=== PATIENT | male | born 1955 | race Caucasian/White ===

== ENCOUNTER 2017-11-03 09:45 | Emergency (ER) | payer OTHER, BC ==
[~2017-11-03] VITALS: Ht 175.3 cm; Wt 104.3 kg
[~2017-11-03 09:45] MED LIST: ADVAIR 500-501 EACH INH; ADVIL200 MG PO; ALBUTEROL2.5 MG/3 M INH; BAYER CHEWABLE81 MG PO; COLESTIPOL HCL1 GM PO; LEXAPRO10 MG PO; MELOXICAM15 MG PO; PREDNISONE20 MG PO; PROAIR HFA8.5 GM INH; SINGULAIR10 MG PO; ZETIA10 MG PO; ZYRTEC10 MG PO
[2017-11-03] MEDS ORDERED: ISOSORBIDE MONO30 MG PO (09:58)
--- NOTE | 2017-11-04 06:55 | EKG ---
[facility] [address] [facility] [place], [place] [address] Signed Sinus bradycardia Otherwise normal ECG No previous ECGs available Confirmed by JENN PALACIOS MD ([id number]) on 11/04/2017 6:54:46 AM Electronically Signed By: JENN PALACIOS MD 11/04/17 0655 PATIENT NAME: JOSE PARIKH Electrocardiogram DATE OF : 55 PHYSICIAN: JENN PALACIOS MD REPORT #: [id number] REPORT IS CONFIDENTIAL AND NOT TO BE RELEASED WITHOUT AUTHORIZATION
== END 2017-11-03 11:08 | disposition home or self-care (01) ==
LOC: ED 09:45
DX: R56.9 Unspecified convulsions (principal); Z88.8 Allergy status to other drugs, medicaments and biological substances; Z79.899 Other long term (current) drug therapy
CPT/HCPCS: 70450; 80053; 84484; 85025; 93005; 93010; 99284

== ENCOUNTER 2019-06-15 06:40 | Day surgery (SDC) | payer OTHER, BC ==
[~2019-06-15] VITALS: Ht 175.3 cm; Wt 111.1 kg
[~2019-06-15 06:40] MED LIST changes: +COZAAR25 MG; +ISOSORBIDE MONO30 MG PO; +ZOLOFT25 MG
[2019-06-15] MEDS ORDERED: PRALUENT P75 MG/1 ML (07:00)
--- NOTE | 2019-06-15 08:03 | NUR ---
06/15/19 0803 Efrem,Alejandra 0754 PT ARRIVED TO PACU ON 3L VIA NC, RESP EVEN AND UNLABORED. PT WAKES EASILY TO VERBAL STIMULI AND IS REORIENTED TO PACU. PT FALLS BACK TO SLEEP AND SMALL AMOUNT OF SNORING NOTED.
--- NOTE | 2019-06-15 14:16 | NUR ---
PT RESTING IN BED, ALERT AND ORIENTED. PT IS HERE FOR HIS FIRST SCOPE. HE SEEMED TO DEAL APPROPRIATELY WITH PREP. GAVE BLESSING, WILL FOLLOW PT HAS NEED
--- NOTE | 2019-06-15 18:16 | OR ---
[facility] [address] [place], [place] [address] Signed DATE OF OPERATION: 06/15/2019 SURGEON: Ro Wilkins MD PREOPERATIVE DIAGNOSIS: Personal history of colonic polyps in 2013. POSTOPERATIVE DIAGNOSES: 1. 5 mm polyp at 95 cm (distal transverse colon). 2. Internal anal skin tag x1. PROCEDURE: Colonoscopy with hot biopsy. ESTIMATED BLOOD LOSS: None. INDICATIONS: Jose is a 63-year-old gentleman, who asked to see me for a followup colonoscopy. He had an adenomatous polyp removed at 38 cm in December 2013. He also has an internal anal skin tag x1. There are no lower GI complaints. No family history of colon cancer or polyps. I met with Jose in the office. We have reviewed colonoscopy together in detail. He understands the nature of the test along with the risks including, but not limited to gas bloating, crampy abdominal pain, bleeding, perforation requiring surgery, and missed diagnosis. He also understands the need for IV conscious sedation. He had expressed understanding and wished to proceed. PROCEDURE NOTE: Jose was taken into our endoscopy suite and placed in the left lateral decubitus position. He was given a total of 5 mg of Versed and 125 mcg of fentanyl. A digital rectal exam was performed and I could feel the internal anal skin tag. Prostate is mildly enlarged and indurated. After this, the adult colonoscope was introduced and advanced quite readily into the cecum itself without difficulty. His prep was good. We could see the appendiceal orifice and the ileocecal valve. The scope was slowly withdrawn. We took several pictures throughout for photodocumentation. Back at 95 cm in the distal transverse colon, we took out a small 5 mm polyp with the help of hot biopsy forceps. There was no diverticulosis. The rectum was unremarkable. Upon retroflexing the scope, we could see the single internal anal skin tag. After this, the gas was suctioned out. Colonoscope removed. Jose tolerated the procedure quite well. Electronically Signed By: RO WILKINS MD 06/15/19 1816 PATIENT NAME: JOSE PARIKH OPERATIVE REPORT DATE OF : 55 REPORT #: [id number] PHYSICIAN: RO WILKINS MD PCP: CHANEL LOZANO REPORT IS CONFIDENTIAL AND NOT TO BE RELEASED WITHOUT AUTHORIZATION [address] [address] Signed RECOMMENDATIONS: I will see Jose back in my office in 7 to 14 days to review his results. He will stay on the 5-year rotation. MD WIN Leija/SONAL /[id number] cc: MD Chanel Leija PA Copies: RO WILKINS MD, LINDA PA ~ Electronically Signed By: RO WILKINS MD 06/15/19 1816 PATIENT NAME: JOSE PARIKH OPERATIVE REPORT DATE OF : 55 REPORT #: [id number] PHYSICIAN: RO WILKINS MD PCP: CHANEL LOZANO REPORT IS CONFIDENTIAL AND NOT TO BE RELEASED WITHOUT AUTHORIZATION
--- NOTE | 2019-06-16 13:40 | PATH ---
[facility] [address] [place], [place] [address] Signed SPECIMEN(S): A COLON POLYP AT 95 CM SPECIMEN SOURCE: A. COLON POLYP AT 95 CM CLINICAL HISTORY: Family history colon ca, history polyp. MICROSCOPIC DESCRIPTION: Histologic sections of all submitted blocks are examined by light microscopy. These findings, together with the gross examination, support the pathologic diagnosis. FINAL PATHOLOGIC DIAGNOSIS: Colon, polyp at 95 cm, polypectomy: - Tubular adenoma. - Negative for high-grade dysplasia or malignancy. NAL:cml:C2NR GROSS DESCRIPTION: The specimen, labeled "RL, 1" and "colon polyp at 95 cm" on the requisition, is received in formalin and consists of two soft marques tissue fragments that measure 0.3 cm each and are submitted in toto in cassette (A1). SS (under the direct supervision of a pathologist) The Gross Description was prepared using a voice recognition system. The report was reviewed for accuracy; however, sound-alike word errors, addition and/or deletions may occur. If there is any question about this report, please contact Client Services. PERFORMING LABORATORY: The technical component was performed by [facility], [address] [place] [id number] (Nailhead Operator: Prema Levin MD; CLIA# [id number]). [facility] [address] [address] (CLIA# [id number]). Diagnostician: Kavya Adkins MD Pathologist Electronically Signed 06/16/2019 PATIENT NAME: JOSE PARIKH PATHOLOGY DATE OF : 55 REPORT #: [id number] PHYSICIAN: JOSE PATHOLOGY PCP: IGNACIO LOZANO REPORT IS CONFIDENTIAL AND NOT TO BE RELEASED WITHOUT AUTHORIZATION [address] [address] Signed Copies: ~ PATIENT NAME: JOSE PARIKH PATHOLOGY DATE OF : 55 REPORT #: [id number] PHYSICIAN: JOSE PATHOLOGY PCP: IGNACIO LOZANO REPORT IS CONFIDENTIAL AND NOT TO BE RELEASED WITHOUT AUTHORIZATION
== END 2019-06-15 08:48 | disposition home or self-care (01) ==
LOC: OPS 06:40 → DS 06:40 → OPS 06:45 → DS 09:00
PROVIDERS: Colon & Rectal Surgery
PROC: 0DBE8ZZ Excision of Large Intestine, Via Natural or Artificial Opening Endoscopic (ICD-10-PCS; principal; 2019-06-15 06:45)
DX: Z12.11 Encounter for screening for malignant neoplasm of colon (principal); D12.6 Benign neoplasm of colon, unspecified; K64.4 Residual hemorrhoidal skin tags; N40.0 Benign prostatic hyperplasia without lower urinary tract symptoms; N42.89 Other specified disorders of prostate; I10 Essential (primary) hypertension; E78.5 Hyperlipidemia, unspecified; Z79.82 Long term (current) use of aspirin; Z86.010 Personal history of colon polyps; Z79.899 Other long term (current) drug therapy; Z88.8 Allergy status to other drugs, medicaments and biological substances; Z98.890 Other specified postprocedural states
CPT/HCPCS: 99153; G0500; J2250; J3010; J7121

== ENCOUNTER 2021-12-27 12:22 | Emergency (ER) | payer BC, MEDICARE ==
[~2021-12-27] VITALS: Ht 175.3 cm; Wt 111.1 kg
[~2021-12-27 12:22] MED LIST changes: +PRALUENT P75 MG/1 ML
--- NOTE | 2021-12-27 15:57 | EKG ---
[facility] [address] [facility] [place], [place] [address] Signed Normal sinus rhythm Normal ECG When compared with ECG of 03-NOV-2017 10:10, No significant change was found Confirmed by JENN PALACIOS MD ([id number]) on 12/27/2021 3:56:57 PM Electronically Signed By: JENN PALACIOS MD 12/27/21 1557 PATIENT NAME: JOSE PARIKH [place] Electrocardiogram DATE OF : 55 PHYSICIAN: JENN PALACIOS MD REPORT #: [id number] REPORT IS CONFIDENTIAL AND NOT TO BE RELEASED WITHOUT AUTHORIZATION
== END 2021-12-27 15:39 | disposition home or self-care (01) ==
LOC: ED 12:22
DX: T67.5XXA Heat exhaustion, unspecified, initial encounter (principal); E86.0 Dehydration; G47.33 Obstructive sleep apnea (adult) (pediatric); E78.00 Pure hypercholesterolemia, unspecified; J45.909 Unspecified asthma, uncomplicated; Z88.8 Allergy status to other drugs, medicaments and biological substances; Z79.899 Other long term (current) drug therapy; Z79.82 Long term (current) use of aspirin; X30.XXXA Exposure to excessive natural heat, initial encounter; Z20.822 Contact with and (suspected) exposure to COVID-19
CPT/HCPCS: 36415; 80053; 81001; 83735; 84484; 85025; 93005; 93010; 96360; 99284-25; C9803; J7030